=== PATIENT | male | born 1990 | race African-American/Black ===

== ENCOUNTER 2018-08-18 11:03 | Emergency (ER) | payer MEDICAID, OTHER ==
[~2018-08-18] VITALS: Ht 175.3 cm; Wt 82.0 kg
[2018-08-18 12:18] VITALS: BP 117/74
== END 2018-08-18 12:20 | disposition home or self-care (01) ==
LOC: ER 11:03
DX: H10.9 Unspecified conjunctivitis (principal); F17.210 Nicotine dependence, cigarettes, uncomplicated; F12.90 Cannabis use, unspecified, uncomplicated
CPT/HCPCS: 99282

== ENCOUNTER 2018-12-22 18:40 | Emergency (ER) | payer MEDICAID ==
[~2018-12-22] VITALS: Ht 177.8 cm; Wt 71.0 kg
[2018-12-22 19:02] VITALS: BP 119/60
== END 2018-12-23 | disposition left against medical advice (07) ==
LOC: ER 18:40
DX: Z53.21 Procedure and treatment not carried out due to patient leaving prior to being seen by health care provider (principal)

== ENCOUNTER 2019-01-23 09:07 | Emergency (ER) | payer MEDICAID ==
[~2019-01-23] VITALS: Ht 175.3 cm; Wt 68.0 kg
[2019-01-23 09:44] VITALS: BP 118/70
[2019-01-23] MEDS ORDERED: KETOROLAC 30MG/ML VIAL IM ONE (09:45)
[2019-01-23 10:01] LABS: CLARITY URINE CLEAR (CLEAR); COLOR URINE YELLOW (YELLOW); KETONES URINE NEGATIVE (NEGATIVE); LEUKOCYTE ESTERASE URINE NEGATIVE (NEGATIVE); NITRITE URINE NEGATIVE (NEGATIVE); OCCULT BLOOD URINE NEGATIVE (NEGATIVE); PROTEIN URINE NEGATIVE (NEGATIVE); SPECIFIC GRAVITY URINE 1.024 (1.005-1.030)
[2019-01-25 07:13] LABS: CHLAMYDIA TRACHOMATIS NAA Negative (Negative); NEISSERIA GONORRHOEAE NAA Negative (Negative)
== END 2019-01-23 10:42 | disposition home or self-care (01) ==
LOC: ER 09:07
DX: L02.214 Cutaneous abscess of groin (principal); F12.10 Cannabis abuse, uncomplicated
CPT/HCPCS: 76870; 81003; 87491; 87591; 93976; 96372; 99284; J1885

== ENCOUNTER 2019-01-25 20:20 | Emergency (ER) | payer MEDICAID ==
[~2019-01-25] VITALS: Ht 175.3 cm; Wt 82.0 kg
[2019-01-25 23:11] VITALS: BP 118/71
== END 2019-01-25 23:12 | disposition home or self-care (01) ==
LOC: ER 20:20
DX: N45.4 Abscess of epididymis or testis (principal); F12.10 Cannabis abuse, uncomplicated; F17.200 Nicotine dependence, unspecified, uncomplicated
CPT/HCPCS: 99283

== ENCOUNTER 2019-06-14 11:14 | Emergency (ER) | payer MEDICAID ==
[~2019-06-14] VITALS: Ht 167.6 cm; Wt 72.0 kg
[2019-06-14] MEDS ORDERED: KETOROLAC 60MG/2ML VIAL IM ONE (12:00)
[2019-06-14 14:38] VITALS: BP 121/74
== END 2019-06-14 14:39 | disposition home or self-care (01) ==
LOC: ER 11:14
DX: J06.9 Acute upper respiratory infection, unspecified (principal); R06.00 Dyspnea, unspecified; F12.10 Cannabis abuse, uncomplicated; M79.10 Myalgia, unspecified site
CPT/HCPCS: 71045; 93005; 99283; J1885

== ENCOUNTER 2024-01-25 12:07 | Emergency (ER) | payer MEDICAID ==
[~2024-01-25] VITALS: Ht 175.3 cm; Wt 68.0 kg
[2024-01-25 12:09] VITALS: O2SAT 100
[2024-01-25 12:16] VITALS: BP 134/74; PULSE 70; RESP 18; TEMP 97.6; O2SAT 99
[2024-01-25 12:34] LABS: CLARITY URINE CLEAR (CLEAR); COLOR URINE DARK YELLOW (YELLOW); GLUCOSE URINE NEGATIVE (NEGATIVE); KETONES URINE 3+ (NEGATIVE); LEUKOCYTE ESTERASE URINE NEGATIVE (NEGATIVE); NITRITE URINE NEGATIVE (NEGATIVE); OCCULT BLOOD URINE NEGATIVE (NEGATIVE); PROTEIN URINE 2+ (NEGATIVE)
[2024-01-25 12:52] LABS: BACTERIA URINE NONE SEEN; MUCUS URINE 1+ /lpf (NONE/TRACE); RBC URINE 0-2 /hpf (0-2); SQUAMOUS EPITHELIAL CELL URINE RARE /lpf (RARE/1+); WBC URINE 0-2 /hpf (0-2); YEAST URINE NONE SEEN
[2024-01-25] MEDS: FAMOTIDINE 20MG/2ML VIAL IV ONE (13:48)
[2024-01-25] MEDS: HALOPERIDOL LACTATE 5MG/ML VIAL IM ONE (13:50)
[2024-01-25] MEDS ORDERED: ACETAMINOPHEN 1000MG/100ML 100 ML IV ONE (14:00)
[2024-01-25] MEDS: SODIUM CHLORIDE 0.9% 1,000 ML IV ONE (14:20)
== END 2024-01-25 17:25 | disposition left against medical advice (07) ==
LOC: ER 12:07
DX: R11.10 Vomiting, unspecified (principal); Z98.890 Other specified postprocedural states; Z87.19 Personal history of other diseases of the digestive system
CPT/HCPCS: 81003; 96361; 96372; 96374; 99284; J3490; J1630; J7030; Z7610; 99283; J0131